=== PATIENT | female | born 1935 | race Caucasian/White ===

== ENCOUNTER 2017-07-05 21:21 | Inpatient (IN) | payer MEDICARE, BC ==
[~2017-07-05] VITALS: Ht 165.1 cm; Wt 95.2 kg
[~2017-07-05 21:21] MED LIST: ACYCLOVIR200 MG; ADVIL200 MG; ADVIL200 MG PO; ASPIRIN; ASPIRIN1 GM MC; ATIVAN0.5 M1 PO; AUGMENTIN875 MG PO; BENADRYL ALLE12.5 M1 PO; CALCIUM COMPLETE PO; CHLORASEPTIC LO1 LOZ MM; CLEOCIN HCL300 MG PO; DECONGESTANT30 MG; DIOVAN160 M; FAMVIR500 M2 PO; FISH OIL1 CAP PO; FLEXERIL 10MG PO; FLORIFY PO; IBUPROFEN600 M1 PO; LAMININE PO; LIFE-PACK0.8 MG/COM; LORAZEPAM0.5 MG PO; MACRODANTIN100 MG; MAX PO; MELATONIN; MELATONIN1 MG SL; MONOLAURIN; MUCINEX D TABL1 EACH PO; NORCO 5-325 TA1 EACH PO; NORCO 5/325 TAB1 TAB PO; PREDNISONE10 MG PO; ST. JOHN'S WOR300 MG PO; SYNTHROID75 MC1 PO; TYLENOL650 MG PO; VALTREX500 MG PO; VITAMIN D5000 UNIT PO; [UNRECOGNIZED DRUG - OTHER]; [UNRECOGNIZED DRUG - OTHER]; [UNRECOGNIZED DRUG - OTHER]; [UNRECOGNIZED DRUG - OTHER]
[2017-07-05 21:45] LABS: BASO % 0.2 % (0-2); EOS % 1.2 % (0-7); EOSINOPHIL ABSOLUTE COUNT 0.1 tho/cmm (0.0-0.7); HCT-HEMATOCRIT 40.6 % (34.0-49.0); HGB-HEMOGLOBIN 14.1 gm/dl (12.0-15.5); IMMATURE GRANULOCYTES ABSOLUTE 0.03 tho/cmm (0-0.03); IMMATURE GRANULOCYTES PERCENT 0.2 % (0-0.3); LYMPH % 4.9 % (20-45); LYMPH ABSOLUTE COUNT 0.6 tho/cmm (0.8-4.5); MCHC MEAN CORPUSCULAR HGB CONC 34.7 % (32.0-36.0); MCV (MEAN CELL VOLUME) 89.2 fl (82.0-96.0); MEAN PLATELET VOLUME 10.1 cmc (9.4-12.4); MONOCYTE ABSOLUTE COUNT 0.6 tho/cmm (0.0-1.2); NEUTROPHIL ABSOLUTE COUNT 10.8 tho/cmm (1.6-8.0); NEUTROPHIL-AUTOMATED 10.8 tho/cmm (1.6-8.0); NEUTROPHILS % 88.5 % (40-80); PLATELET COUNT 250 tho/cmm (150-450); RED BLOOD COUNT 4.55 mil/cmm (4.00-5.20); RED CELL DISTRIBUTION WIDTH 13.5 % (12.4-16.4); WHITE BLOOD COUNT 12.2 tho/cmm (4.0-10.0)
[2017-07-05 22:04] LABS: ALB/GLOB RATIO 0.8 (0.8-2.0); ALBUMIN 3.4 g/dl (3.5-5.0); ALKALINE PHOSPHATASE 40 U/L (33-138); ALT/SGPT 21 U/L (12-78); ANION GAP 10 mmol/L (0-20); AST/SGOT 9 U/L (10-40); BILIRUBIN,TOTAL 0.5 mg/dl (0-1.5); BLOOD UREA NITROGEN 13 mg/dl (6-24); CALCIUM 8.5 mg/dl (8.5-10.5); CARBON DIOXIDE-VENOUS 26 mmol/L (22-32); CHLORIDE 98 mmol/l (96-110); CREATININE 0.68 mg/dl (0.50-1.10); GLUCOSE 118 mg/dL (70-110); POTASSIUM 4.4 mmol/L (3.7-5.1); SODIUM 130 mmol/L (135-145); eGFR VALUE FOR BLACK >90 mL/Min
[2017-07-05 22:22] LABS: MAGNESIUM 1.8 mg/dl (1.8-2.6)
[2017-07-05 22:24] LABS: TSH-THYROID STIMULATING HORM. 2.1 uIU/ml (0.40-3.80)
[2017-07-05 22:34] LABS: URINE BILIRUBIN NEGATIVE (NEG); URINE BLOOD MODERATE (NEG); URINE GLUCOSE (UA) NEGATIVE (NEG); URINE KETONE NEGATIVE (NEG); URINE LEUKOCYTE ESTERASE POSITIVE (NEG); URINE NITRITE NEGATIVE (NEG); URINE PROTEIN NEGATIVE (NEG); URINE SPECIFIC GRAVITY 1.015 (1.003-1.030)
[2017-07-05 22:37] LABS: URINE APPEARANCE CLEAR; URINE COLOR YELLOW
[2017-07-05 22:42] LABS: URINE EPITHELIAL CELLS 0-3 /[HPF] (0-10); URINE RBC 0-2 /[HPF] (0-5)
[2017-07-05] MEDS ORDERED: IBUPROFEN200 M2 PO (23:50)
[2017-07-05] MEDS ORDERED: TOPROL XL50 M1 PO (23:52)
[2017-07-05] MEDS ORDERED: METOPROLOL SUCC50 M1 PO (23:53)
[2017-07-06 02:01] LABS: PROCALCITONIN <0.05 ng/ml (0.05-0.09)
--- NOTE | 2017-07-07 00:08 | NUR ---
VIRTUAL CARE NOTE: ASSESSMENT DEFERRED. PT. SLEEPING.
[2017-07-07 06:13] LABS: EOS % 0.1 % (0-7); HGB-HEMOGLOBIN 12.5 gm/dl (12.0-15.5); LYMPH % 4.1 % (20-45); LYMPH ABSOLUTE COUNT 0.6 tho/cmm (0.8-4.5); MCHC MEAN CORPUSCULAR HGB CONC 32.9 % (32.0-36.0); MCV (MEAN CELL VOLUME) 91.3 fl (82.0-96.0); MONO % 4.8 % (0-12); MONOCYTE ABSOLUTE COUNT 0.7 tho/cmm (0.0-1.2); NEUTROPHIL ABSOLUTE COUNT 13.4 tho/cmm (1.6-8.0); NEUTROPHIL-AUTOMATED 13.4 tho/cmm (1.6-8.0); PLATELET COUNT 252 tho/cmm (150-450); RED BLOOD COUNT 4.16 mil/cmm (4.00-5.20); RED CELL DISTRIBUTION WIDTH 13.8 % (12.4-16.4); WHITE BLOOD COUNT 14.8 tho/cmm (4.0-10.0)
--- NOTE | 2017-07-07 16:35 | NUR ---
virtual care note: pt has requested no visitors due to wanting to rest. will visit later, should the patient allow. will continue to monitor. electronic chart reviewed.
[2017-07-08] MEDS ORDERED: PROAIR HFA8.5 GM INH (10:33)
[2017-07-08] MEDS ORDERED: PHENERGAN/CODEINE PO (10:34)
[2017-07-08] MEDS ORDERED: PREDNISONE10 M1 PO (10:38)
[2017-07-08] MEDS ORDERED: LEVAQUIN500 M1 PO (14:03)
[2017-07-08] MEDS ORDERED: CHLORASEPTIC M1 EAC1 MM (14:06)
== END 2017-07-08 14:22 | DRG 193 ==
LOC: EDMED → EDBD 21:21 → EDMED 21:21 → EMR2 07-06 → 5WD 07-06
PROVIDERS: Emergency Medicine; ADMIT Family Medicine
DX: J18.9 Pneumonia, unspecified organism (principal); J96.91 Respiratory failure, unspecified with hypoxia; M06.80 Other specified rheumatoid arthritis, unspecified site; E03.9 Hypothyroidism, unspecified; I10 Essential (primary) hypertension; E11.9 Type 2 diabetes mellitus without complications; I51.7 Cardiomegaly
CPT/HCPCS: J1956; J2930; J7030